=== PATIENT | female | born 1970 | race Caucasian/White ===

== ENCOUNTER → 2019-10-25 | Outpatient (CLI) | payer OTHER ==
[~2019-10-25] MED LIST: ASCO1CAP2 PO; AZEL137S4 NAS; CALC1CAP8 PO; CHOL10003 PO; FLUT9.9S NS; GALC120P SC; LYSI500T25 PO; MAGN400T9 PO; MULT-658 PO; OMEP-110 PO; RIBO100T3 PO; TOPI50TA8 PO; TRAZ-175 PO; UBID100C41 PO; VALA10007 PO; [UNRECOGNIZED DRUG - OTHER] PO
[2019-10-25 09:52] LABS: BASOPHILS # (AUTO) 0.03 x10^3/uL (0-0.1); BASOPHILS % (AUTO) 0 % (0-1); EOSINOPHILS # (AUTO) 0.12 x10^3/uL (0-0.4); EOSINOPHILS % (AUTO) 1 % (1-7); LYMPHOCYTES # (AUTO) 1.73 x10^3/uL (1-3.4); LYMPHOCYTES % (AUTO) 18 % (22-44); MD NO; MEAN CORPUSCULAR HEMOGLOBIN 32.4 pg (27.0-34.8); MEAN CORPUSCULAR HGB CONC 33.6 g/dL (32.4-35.8); MEAN CORPUSCULAR VOLUME 96.3 fL (80-100); MEAN PLATELET VOLUME 7.6 fL (7.4-10.4); MONOCYTES # (AUTO) 0.72 x10^3/uL (0.2-0.8); MONOCYTES % (AUTO) 7 % (2-9); NEUTROPHILS # (AUTO) 7.09 x10^3/uL (1.8-6.8); NEUTROPHILS % (AUTO) 73 % (42-75); PLATELET COUNT 374 x10^3/uL (130-400); RED BLOOD COUNT 4.72 x10^6/uL (3.82-5.3)
[2019-10-25 10:07] LABS: ANION GAP 5 mmol/L (5-15); CALCIUM 9.2 mg/dL (8.5-10.1); CHLORIDE 107 mmol/L (98-107)
[2019-10-25 10:12] LABS: ALANINE AMINOTRANSFERASE 27 U/L (12-78); ALBUMIN 3.6 g/dL (3.4-5.0); ALKALINE PHOSPHATASE 95 U/L (45-117); BILIRUBIN,TOTAL 0.4 mg/dL (0.2-1.0); CREATININE 0.74 mg/dL (0.55-1.02); TOTAL PROTEIN 7.8 g/dL (6.4-8.2)
[2019-10-25 10:30] LABS: INTERNATIONAL NORMALIZED RATIO 0.91 (0.93-1.1); PROTHROMBIN TIME 9.6 Seconds (9.6-11.5)
== END | disposition home or self-care (01) ==
LOC: STAR 08:50
PROVIDERS: ATTEND Obstetrics & Gynecology
DX: Z01.818 Encounter for other preprocedural examination (principal); Z15.01 Genetic susceptibility to malignant neoplasm of breast
CPT/HCPCS: 36415; 71046; 80053; 85025; 85610; 85730; 93005

== ENCOUNTER 2019-10-29 11:32 | Day surgery (SDC) | payer OTHER ==
[~2019-10-29] VITALS: Ht 157.5 cm; Wt 75.0 kg
[2019-10-29] MEDS ORDERED: LACTATED RINGERS 1,000 ML IV SCH (11:44)
[2019-10-29] MEDS ORDERED: CHLORHEXIDINE 15 ML UDC MM STA (11:44)
[2019-10-29] MEDS ORDERED: CEFOTETAN PMX 2GM/50ML 50 ML IV ONE (12:00)
[2019-10-29] MEDS ORDERED: FENTANYL PF 250 MCG/5ML ONE (12:17)
[2019-10-29] MEDS ORDERED: MIDAZOLAM 1 MG/ML, 2ML ONE (12:17)
[2019-10-29] MEDS ORDERED: LIDOCAINE-MPF 2% ,5ML ONE (14:04)
[2019-10-29] MEDS ORDERED: NEOSTIGMINE 1 MG/ML, 10ML ONE (14:04)
[2019-10-29] MEDS ORDERED: PROPOFOL 10 MG/ML, 20ML ONE (14:04)
[2019-10-29] MEDS ORDERED: GLYCOPYRROLATE 0.2MG/1ML, 5ML ONE (14:04)
[2019-10-29] MEDS ORDERED: ONDANSETRON 2MG/ML, 2ML ONE (14:04)
[2019-10-29] MEDS ORDERED: DEXAMETHASONE 4 MG/ML, 1ML ONE (14:04)
[2019-10-29] MEDS ORDERED: ROCURONIUM 10MG/ML,5ML ONE (14:04)
[2019-10-29] MEDS ORDERED: LABETALOL 5MG/ML, 20ML IV PRN (14:30)
[2019-10-29] MEDS ORDERED: OXYcodone 5 MG/5 ML ORAL.SOL UDC PO PRN (14:30)
[2019-10-29] MEDS ORDERED: ACETAMINOPHEN 325 MG TABLET PO PRN (14:30)
[2019-10-29] MEDS ORDERED: ONDANSETRON 2MG/ML, 2ML IVPush PRN (14:30)
[2019-10-29] MEDS ORDERED: PROMETHAZINE 25 MG/ML, 1ML IVPush PRN (14:30)
[2019-10-29] MEDS ORDERED: DIAZEPAM 5 MG/ML, 2ML IVPush PRN (14:30)
[2019-10-29] MEDS ORDERED: FENTANYL PF 100 MCG/2ML IV PRN (14:30)
[2019-10-29] MEDS ORDERED: HALOPERIDOL 5 MG/ML IV PRN (14:30)
[2019-10-29] MEDS ORDERED: hydrALAzine 20 MG/ML, 1ML IV PRN (14:30)
[2019-10-29] MEDS ORDERED: HYDROmorphone 1 MG/ML, 1ML INJ IVPush PRN (14:30)
[2019-10-29] MEDS ORDERED: BUPIVACAINE/PF-EPI 0.25% 1:200K INFIL ONE (14:45)
[2019-10-29] MEDS ORDERED: HEPARIN 1,000 UNITS/ML, 10ML ONE (15:42)
[2019-10-29] MEDS ORDERED: BUPIVACAINE/PF-EPI 0.25% 1:200K ONE (15:42)
[2019-10-29] MEDS ORDERED: OXYcodone 5 MG/5 ML ORAL.SOL UDC ONE (15:46)
== END 2019-10-29 17:20 | disposition home or self-care (01) ==
LOC: OR 11:32
PROVIDERS: ATTEND Obstetrics & Gynecology
DX: Z40.02 Encounter for prophylactic removal of ovary(s) (principal); Z11.59 Encounter for screening for other viral diseases; Z15.01 Genetic susceptibility to malignant neoplasm of breast; D27.1 Benign neoplasm of left ovary; D27.0 Benign neoplasm of right ovary; N73.1 Chronic parametritis and pelvic cellulitis; N73.6 Female pelvic peritoneal adhesions (postinfective); K21.9 Gastro-esophageal reflux disease without esophagitis; J45.909 Unspecified asthma, uncomplicated; G43.909 Migraine, unspecified, not intractable, without status migrainosus; Z79.899 Other long term (current) drug therapy; Z88.5 Allergy status to narcotic agent; Z88.8 Allergy status to other drugs, medicaments and biological substances; Z90.49 Acquired absence of other specified parts of digestive tract; Z90.710 Acquired absence of both cervix and uterus; Z98.890 Other specified postprocedural states; Z80.3 Family history of malignant neoplasm of breast; Z80.41 Family history of malignant neoplasm of ovary; Z84.81 Family history of carrier of genetic disease
CPT/HCPCS: 36415; 58661; 86304; 86850; 86900; 86923; 87635; 88112; 88305; J1100; J1644; J2250; J2405; J2704; J2710; J3010; J3490; J7120; S2900

== ENCOUNTER 2020-01-03 05:48 | Day surgery (SDC) | payer OTHER ==
[2019-12-31 16:41] LABS: INTERNATIONAL NORMALIZED RATIO 0.92 (0.93-1.1); PROTHROMBIN TIME 9.5 Seconds (9.6-11.5)
[2019-12-31 16:43] LABS: BASOPHILS # (AUTO) 0.03 x10^3/uL (0-0.1); BASOPHILS % (AUTO) 0 % (0-1); EOSINOPHILS # (AUTO) 0.11 x10^3/uL (0-0.4); EOSINOPHILS % (AUTO) 2 % (1-7); LYMPHOCYTES # (AUTO) 1.89 x10^3/uL (1-3.4); LYMPHOCYTES % (AUTO) 26 % (22-44); MD NO; MEAN CORPUSCULAR HEMOGLOBIN 31.5 pg (27.0-34.8); MEAN CORPUSCULAR HGB CONC 33.3 g/dL (32.4-35.8); MEAN CORPUSCULAR VOLUME 94.6 fL (80-100); MEAN PLATELET VOLUME 8.4 fL (7.4-10.4); MONOCYTES # (AUTO) 0.45 x10^3/uL (0.2-0.8); MONOCYTES % (AUTO) 6 % (2-9); NEUTROPHILS # (AUTO) 4.79 x10^3/uL (1.8-6.8); NEUTROPHILS % (AUTO) 66 % (42-75); PLATELET COUNT 385 x10^3/uL (130-400); RED BLOOD COUNT 4.88 x10^6/uL (3.82-5.3); RED CELL DISTRIBUTION WIDTH 13.5 % (9.6-15.2)
[2019-12-31 16:45] LABS: ALBUMIN 3.7 g/dL (3.4-5.0); ANION GAP 6 mmol/L (5-15); CALCIUM 9.5 mg/dL (8.5-10.1); CHLORIDE 108 mmol/L (98-107)
[2019-12-31 16:49] LABS: ALANINE AMINOTRANSFERASE 20 U/L (12-78); ALKALINE PHOSPHATASE 88 U/L (45-117); BILIRUBIN,TOTAL 0.4 mg/dL (0.2-1.0); CREATININE 0.83 mg/dL (0.55-1.02); TOTAL PROTEIN 7.9 g/dL (6.4-8.2)
[~2020-01-03] VITALS: Ht 157.5 cm; Wt 74.0 kg
[~2020-01-03 05:48] MED LIST changes: +MAGN400T36 PO
[2020-01-03] MEDS ORDERED: LACTATED RINGERS 1,000 ML IV SCH (06:37)
[2020-01-03 06:38] VITALS: BP 132/87
[2020-01-03] MEDS ORDERED: CHLORHEXIDINE 15 ML UDC MM STA (06:40)
[2020-01-03] MEDS ORDERED: SODIUM BICARBONATE 1 MEQ/ML, 50ML VIAL ONE (06:45)
[2020-01-03] MEDS ORDERED: BACITRACIN 50,000 UNIT ONE (06:46)
[2020-01-03] MEDS ORDERED: BUPIVACAINE/EPI 0.5% 1:200K ONE (06:46)
[2020-01-03] MEDS ORDERED: LIDOCAINE 1%, 20ML ONE (06:46)
[2020-01-03] MEDS ORDERED: EPINEPHRINE 1 MG/ML, 1ML ONE (06:46)
[2020-01-03] MEDS ORDERED: MIDAZOLAM 1 MG/ML, 2ML ONE ×2 (07:17→07:24)
[2020-01-03] MEDS ORDERED: FENTANYL PF 250 MCG/5ML ONE ×2 (07:18→08:14)
[2020-01-03] MEDS ORDERED: SCOPOLAMINE 1MG PATCH TD ONE (07:28)
[2020-01-03] MEDS ORDERED: ROCURONIUM 10 MG/ML,10ML ONE (07:35)
[2020-01-03] MEDS ORDERED: ONDANSETRON 2MG/ML, 2ML IVPush PRN (08:00)
[2020-01-03] MEDS ORDERED: MEPERIDINE/PF 25MG/0.5ML IVPush PRN (08:00)
[2020-01-03] MEDS ORDERED: PROMETHAZINE 25 MG/ML, 1ML IVPush PRN (08:00)
[2020-01-03] MEDS ORDERED: ACETAMINOPHEN 325 MG TABLET PO PRN (08:00)
[2020-01-03] MEDS ORDERED: OXYcodone 5 MG/5 ML ORAL.SOL UDC PO PRN (08:00)
[2020-01-03] MEDS ORDERED: HYDROmorphone 1 MG/ML, 1ML INJ IVPush PRN (08:00)
[2020-01-03] MEDS ORDERED: PROPOFOL 50 ML ONE (10:13)
[2020-01-03] MEDS ORDERED: OXYcodone 5 MG/5 ML ORAL.SOL UDC ONE (11:17)
[2020-01-03] MEDS ORDERED: FENTANYL PF 100 MCG/2ML ONE (11:18)
[2020-01-03] MEDS: FENTANYL PF 100 MCG/2ML IV PRN ×2 (11:20→11:25)
[2020-01-03] MEDS ORDERED: DEXAMETHASONE 4 MG/ML, 1ML ONE ×3 (11:32→11:33)
[2020-01-03] MEDS ORDERED: CEFAZOLIN 1,000 MG ONE ×2 (11:32)
[2020-01-03] MEDS ORDERED: SUCCINYLCHOLINE 20 MG/ML, 10ML ONE (11:33)
[2020-01-03] MEDS ORDERED: ONDANSETRON 2MG/ML, 2ML ONE (11:33)
== END 2020-01-03 14:30 | disposition home or self-care (01) ==
LOC: OUT 05:48
PROVIDERS: ATTEND Plastic Surgery
DX: Z15.01 Genetic susceptibility to malignant neoplasm of breast (principal); Z20.828 Contact with and (suspected) exposure to other viral communicable diseases; F17.210 Nicotine dependence, cigarettes, uncomplicated; Z90.49 Acquired absence of other specified parts of digestive tract; Z98.890 Other specified postprocedural states; Z90.710 Acquired absence of both cervix and uterus; Z79.899 Other long term (current) drug therapy; Z88.8 Allergy status to other drugs, medicaments and biological substances; Z82.49 Family history of ischemic heart disease and other diseases of the circulatory system; Z83.3 Family history of diabetes mellitus; Z80.41 Family history of malignant neoplasm of ovary; Z80.3 Family history of malignant neoplasm of breast
CPT/HCPCS: 19303; 19357; 36415; 71046; 80053; 85025; 85610; 87635; 88307; C1729; C1789; J0330; J0690; J1100; J2250; J2405; J2704; J3010; J7120; J0171